=== PATIENT | female | born 1955 | race Caucasian/White ===

== ENCOUNTER → 2020-10-22 08:54 | Outpatient (BNVA) | payer MEDICARE, SELFPAY | PROVIDERS: Family Provider Internal Medicine; Visit Provider Nurse Practitioner Women's Health | DX: Z01.419 Encounter for gynecological examination (general) (routine) without abnormal findings (principal); Z12.39 Encounter for other screening for malignant neoplasm of breast; N64.52 Nipple discharge | CPT/HCPCS: 88175 ==

== ENCOUNTER 2020-12-01 13:52 | Outpatient (CLI) | payer MEDICARE, SELFPAY ==
--- NOTE | 2020-12-01 14:00 | MM_ITS ---
WS: [email or web address] BILATERAL SCREENING DIGITAL MAMMOGRAM WITH CAD HISTORY: Z12.39 - Encounter for other screening for malignant neoplasm. COMPARISON: 11/04/2016, 10/25/2016 and 02/04/2014 Bilateral CC and MLO views submitted. Computer aided detection analyzed. Breast composition: There are scattered areas of fibroglandular density. No suspicious masses, microc alcifications or architectural distortion. Stable triangular nodule in the lateral LEFT breast measur es 6 mm. MM/[place] [id number] IMPRESSION: BI-RADS: 2-Benign FOLLOW UP: 1 Year Follow-up
== END 2020-12-01 13:53 | disposition home or self-care (01) ==
LOC: RADSHAW 13:59
PROVIDERS: PCP Internal Medicine; Visit Provider Nurse Practitioner Women's Health
DX: Z12.31 Encounter for screening mammogram for malignant neoplasm of breast (principal)
CPT/HCPCS: 77067

== ENCOUNTER → 2021-10-23 10:00 | Outpatient (BNVA) | payer MEDICARE, SELFPAY | PROVIDERS: PCP Internal Medicine; Visit Provider Nurse Practitioner Women's Health | DX: Z01.419 Encounter for gynecological examination (general) (routine) without abnormal findings (principal); N64.52 Nipple discharge | CPT/HCPCS: 87624 ==

== ENCOUNTER 2021-12-04 15:31 | Outpatient (CLI) | payer MEDICARE, SELFPAY ==
--- NOTE | 2021-12-04 15:40 | MM_ITS ---
WS: [email or web address] BILATERAL 3D TOMOSYNTHESIS DIGITAL SCREENING MAMMOGRAPHY WITH CAD CLINICAL INFORMATION: Z12.39 - Encounter for other screening for malignant neop... HISTORY: Screening mammogram. No current complaints. COMPARISON: December 01, 2020 TECHNIQUE: Bilateral CC and MLO views. FINDINGS: Scattered fibroglandular densities bilaterally. Lucent centered calcification RIGHT breast. Stable 5 mm ovoid density upper outer LEFT breast is stable since 2017. No suspicious focal mass, asymmetry, c alcifications, or architectural distortion. No evidence of malignancy. MM/MM tomos[place] [facility] [place] [id number] IMPRESSION: BI-RADS: 2-Benign FOLLOW UP: 1 Year Follow-up Recommend return to annual screening mammography.
== END 2021-12-04 15:32 | disposition home or self-care (01) ==
PROVIDERS: PCP Internal Medicine; Visit Provider Nurse Practitioner Women's Health
DX: Z12.31 Encounter for screening mammogram for malignant neoplasm of breast (principal)
CPT/HCPCS: 77063; 77067

== ENCOUNTER → 2022-11-03 08:35 | Outpatient (BNVA) | payer MEDICARE, SELFPAY | PROVIDERS: PCP Internal Medicine; Visit Provider Nurse Practitioner Women's Health | DX: Z01.419 Encounter for gynecological examination (general) (routine) without abnormal findings (principal) | CPT/HCPCS: 87624 ==

== ENCOUNTER 2022-12-06 13:55 | Outpatient (CLI) | payer MEDICARE, MEDICAID, SELFPAY ==
--- NOTE | 2022-12-06 14:05 | MM_ITS ---
WS: [email or web address] BILATERAL 3D TOMOSYNTHESIS DIGITAL SCREENING MAMMOGRAPHY WITH CAD CLINICAL INFORMATION: Z12.31 - Encounter for screening mammogram for malignant ... HISTORY: Screening mammogram. No current complaints. COMPARISON: 12/04/2021 TECHNIQUE: Bilateral CC and MLO views. FINDINGS: Scattered fibroglandular densities bilaterally. No suspicious focal mass, asymmetry, calcifications, or architectural distortion. No evidence of malignancy. Incidental punctate calcification RIGHT breas t. Stable 4 mm ovoid nodule LEFT breast. Stable 4 mm ovoid nodule inferior anterior RIGHT breast. IMPRESSION: MM/[place] [id number] BI-RADS: 2-Benign FOLLOW UP: 1 Year Follow-up Recommend return to annual screening mammography.
--- NOTE | 2022-12-06 15:30 | XR_ITS ---
WS: [email or web address] SCREENING DEXA SCAN Spotsetter CLINICAL INFORMATION: Z78.0 - Asymptomatic menopausal state COMPARISON: None. FINDINGS: The L1-L4 bone mineral density measures 1.215 g/cm2. This corresponds to a T score score of 0.3 and Z score of 1.0. Left femoral neck bone mineral density measures 0.955 g/cm2. This corresponds to a T score of -0.4 an d Z score of 0.2. Right femoral neck bone mineral density measures 0.934 g/cm2. This corresponds to a T score -0.6of an d Z score of 0.0. Mean femoral neck bone mineral density measures 0.944 g/cm2. This corresponds to a T score of -0.5 an d Z score of 0.1. IMPRESSION: Normal bone mineralization. Patient's FRAX calculated 10 year probability for major osteoporotic fracture is 12.5% and osteoporot ic hip fracture is 1.2%.
== END 2022-12-06 13:56 | disposition home or self-care (01) ==
LOC: RAD 13:57
PROVIDERS: PCP Internal Medicine; Visit Provider Nurse Practitioner Women's Health
DX: Z12.31 Encounter for screening mammogram for malignant neoplasm of breast (principal); Z78.0 Asymptomatic menopausal state
CPT/HCPCS: 77063; 77067; 77080; 87624

== ENCOUNTER 2023-03-01 09:06 | Outpatient (CLI) | payer MEDICARE, MEDICAID, SELFPAY ==
--- NOTE | 2023-03-01 09:10 | FL_ITS ---
WS: [email or web address] Exam: FL barium swallow [id number] Date/Time of Exam: 03/01/2023 9:56 AM Reason For Exam: DYSPHONIA Fluoroscopy time: 2min [id number] minutes # of spot films: Oropharyngeal phase of swallowing was normal. No aspiration or penetration noted. There was no sign o f esophageal mass or stricture. A small anterior traction diverticulum seen along the mid esophagus. No hiatal hernia or gastroesophageal reflux observed during fluoroscopy. Incidentally noted are numer ous large calcified mediastinal lymph nodes. IMPRESSION: 1. The esophagus is widely patent without mass or stricture. Normal motility. 2. Small anterior traction diverticulum of the mid esophagus.
--- NOTE | 2023-03-01 09:10 | CT_ITS ---
WS: [email or web address] CT NECK TECHNIQUE: Noncontrast CT of the neck with coronal and sagittal reformatted images. CLINICAL INFORMATION: DYSPHONIA COMPARISON: CT neck 2013 DLP: 185.[address] scans at [facility] use at least one of these dose optimization techniques: automated e xposure control; mA and/or kV adjustment per patient size (includes targeted exams where dose is matc hed to clinical indication); or iterative reconstruction. FINDINGS: Surgical or congenitally absent LEFT thyroid lobe unchanged since 2013. Isthmus nodule. Dominant RIGH T thyroid nodule measuring 1.2 x 1.2 cm similar to the recent thyroid ultrasound. Calcified granulomas in the upper lobes. Mastoid air cells are well aerated. Mucosal thickening in th e paranasal sinuses. Tongue base is normal in appearance. Normal parapharyngeal fat. No evidence of s upraglottic or glottic mass. Parotid glands are normal. Submandibular glands are normal. Dental artif act degrades some images at the tongue base. Normal posterior nasopharynx and parapharyngeal fat. No cervical lymphadenopathy. IMPRESSION: 1. Isthmus nodule. Dominant RIGHT thyroid nodule measuring 1.2 x 1.2 cm similar to the recent thyro id ultrasound. 2. No evidence of supraglottic or glottic mass. 3. Mild mucosal thickening in the paranasal sinuses. Mastoid air cells are well aerated. 4. Normal posterior nasopharynx. 5. No cervical lymphadenopathy.
== END 2023-03-01 09:07 | disposition home or self-care (01) ==
LOC: RAD 09:06
PROVIDERS: PCP Internal Medicine; Visit Provider Specialist
DX: J37.0 Chronic laryngitis (principal); R49.0 Dysphonia; E04.1 Nontoxic single thyroid nodule
CPT/HCPCS: 70490; 74220

== ENCOUNTER 2023-03-25 09:23 | Outpatient (CLI) | payer MEDICARE, MEDICAID, SELFPAY ==
--- NOTE | 2023-03-25 09:28 | FL_ITS ---
WS: [email or web address] Modified barium swallow, 03/25/2023 Clinical Data: Other dysphagia Comparison: None. Fluoroscopy time: 1min [id number] # of spot films: 1 Findings: The patient showed a normal oral phase. There is minimal residual material in the hypopharynx which c leared with double swallows. There is no penetration or aspiration. The hypopharynx functions normall y. The barium tablet passed rapidly through the esophagus with minimal hesitation of the gastro esoph ageal junction. Impression: 1. Minimal residual in hypopharynx which cleared with double swallowing. 2. Minimal hesitation of passing the barium tablet at the gastroesophageal junction.
== END 2023-03-25 09:24 | disposition home or self-care (01) ==
LOC: RAD 09:24
PROVIDERS: PCP Internal Medicine; Visit Provider Specialist
DX: R13.19 Other dysphagia (principal)
CPT/HCPCS: 74230; 92611

== ENCOUNTER 2023-12-08 12:59 | Outpatient (CLI) | payer MEDICARE, SELFPAY ==
--- NOTE | 2023-12-08 13:00 | MM_ITS ---
WS: [email or web address] Bilateral screening 3D tomosynthesis digital mammogram, 12/08/2023 Clinical Data: Z12.31 - Encounter for screening mammogram for malignant ... Comparison: 12/06/2022, 12/04/2021, 12/01/2020, 11/04/2016, 10/25/2016, 02/04/2014, 07/06/2012, 08/27/2011, 06/30/2010, 08/26/2008, 05/15/2007, 03/02/2006. Findings: The breast parenchymal pattern shows fibroglandular tissue. No spiculated masses or clustered calcifi cations are seen. There are no secondary signs of carcinoma. MM/[place] [id number] Impression: 1. Negative bilateral mammogram unchanged. 2. Recommend annual screening mammograms. BIRADS: 1-Negative FOLLOW UP: 1 Year Follow-up The CAD order checker packer processer was used.
== END 2023-12-08 13:00 | disposition home or self-care (01) ==
LOC: RAD 12:59
PROVIDERS: PCP Internal Medicine; Visit Provider Nurse Practitioner Women's Health
DX: Z12.31 Encounter for screening mammogram for malignant neoplasm of breast (principal)
CPT/HCPCS: 77063; 77067

== ENCOUNTER 2025-01-28 12:52 | Outpatient (CLI) | payer MEDICARE, SELFPAY ==
--- NOTE | 2025-01-28 | MM_ITS ---
WS: [email or web address] BILATERAL 3D TOMOSYNTHESIS DIGITAL SCREENING MAMMOGRAPHY WITH CAD CLINICAL INFORMATION: ANNUAL SCREENING HISTORY: Screening mammogram. No current complaints. COMPARISON: 2023 TECHNIQUE: Bilateral CC and MLO views. FINDINGS: Scattered fibroglandular densities bilaterally. No suspicious focal mass, asymmetry, calcifications, or architectural distortion. No evidence of malignancy. Lucent centered calcification RIGHT breast MM/MM scr [place] tomosynthesis [id number] IMPRESSION: DENSITY: There are scattered areas of fibroglandular density. BI-RADS: 2 - Benign. FOLLOW UP: 1 Year Follow-up Recommend return to annual screening mammography.
== END 2025-01-28 12:53 | disposition home or self-care (01) ==
LOC: RAD 12:55
PROVIDERS: PCP Internal Medicine; Visit Provider Family Medicine
DX: Z12.31 Encounter for screening mammogram for malignant neoplasm of breast (principal); R92.323 Mammographic fibroglandular density, bilateral breasts; R92.1 Mammographic calcification found on diagnostic imaging of breast
CPT/HCPCS: 77063; 77067